=== PATIENT | female | born 1965 | race Caucasian/White ===

== ENCOUNTER 2024-06-10 17:11 | Emergency (ER) | payer OTHER, SELFPAY ==
--- NOTE | ~2024-06-10 | XR_ITS ---
EXAMINATION: XR CHEST CLINICAL INFORMATION: Shortness of breath and chest pressure COMPARISON: None available. TECHNIQUE: 2 views of the chest were obtained. FINDINGS: On the lateral radiograph only, there is some patchy density seen posteriorly. A definite correlate on the AP film is not seen but I suspect this could be in the extreme medial posterior basal segment of the left lower lobe. The heart and pulmonary vessels appear normal. No pleural effusions. No other abnormalities. XR/XR chest 2V IMPRESSION: Question of left lower lobe infiltrate. Electronically signed by: Harinder Franklin MD 06/10/2024 06:49 PM EDT
[2024-06-10 17:14] VITALS: BP 136/61; PULSE 130; RESP 18; TEMP 37.6; O2SAT 98; BMI 36.3
--- NOTE | 2024-06-10 17:18 | ECG_ITS ---
Test Reason : CHEST PRESSURE Blood Pressure : / mmHG Vent. Rate : 118 BPM Atrial Rate : 118 BPM P-R Int : 154 ms QRS Dur : 078 ms QT Int : 314 ms P-R-T Axes : 067 040 059 degrees QTc Int : 440 ms Sinus tachycardia Otherwise normal ECG When compared with ECG of 14-FEB-2010 15:19, No significant change was found Referred By: Aliya Cramer Electronically Signed By:Laureano Andujar
[2024-06-10 17:49] LABS: Basophils Percent Auto 0.2 % (0-2); Eosinophils Percent Auto 0.1 % (0-4); Hematocrit 40.4 % (37.0-47.0); Imm Gran Abs Auto 0.07 X10*3/uL (0.00-0.03); Imm Gran Pct Auto 0.5 % (0.0-0.4); Lymphocytes Absolute Auto 1.1 X10*3/uL (1.2-4.9); Lymphocytes Percent Auto 7.4 % (20-40); MANUAL DIFF FLAG SCAN; Mean Corpuscular HGB Conc 34.7 g/dl (31.0-35.0); Mean Corpuscular Volume 86.5 fL (80.0-98.0); Mean Platelet Volume 9.2 fL (9.4-12.3); Monocytes Absolute Auto 1.6 X10*3/uL (0.1-1.2); Monocytes Percent Auto 10.7 % (2-11); Neutrophils Absolute Auto 11.8 x10*3/uL (2.0-8.3); Neutrophils Percent Auto 81.1 % (45-73); Platelet Count 252 X10*3/uL (160-400); Red Blood Count 4.67 X10*6/uL (4.20-5.50); Red Cell Distribution Width 13.2 % (11.0-16.0); SCAN SMEAR FLAG 1; White Blood Count 14.5 X10*3/uL (4.8-10.8)
[2024-06-10 17:55] VITALS: PULSE 125; RESP 31; O2SAT 95
[2024-06-10 17:59] LABS: Alanine Aminotransferase 20 U/L (0-31); Alkaline Phosphatase 77 U/L (39-117); Anion Gap 12 (12-20); Aspartate Amino Transferase 21 U/L (5-31); Bilirubin Total 0.9 mg/dL (0.0-1.0); Blood Urea Nitrogen 13 mg/dL (9-16); Calcium 8.7 mg/dL (8.4-10.2); Carbon Dioxide 26 mmol/L (22-29); Chloride 106 mmol/L (96-108); Creatinine Clr Calc Pharmacy 104.1; Estimated Glomerular Filt Rate > 60; Glucose Random 70 mg/dL (60-115); Lipase 16 U/L (8-78); Magnesium 1.9 mg/dL (1.6-2.6); Potassium 4.1 mmol/L (3.3-5.1); Sodium 140 mmol/L (135-145); Total Protein 6.6 g/dL (6.5-8.0)
[2024-06-10] MEDS: levalbuterol HCL 1.25 MG/3 ML VIAL.NEB 3.75 MG INHALE (18:02)
[2024-06-10 18:07] LABS: Troponin-I High Sensitivity < 2.7 ng/L (<3.5-17.0)
[2024-06-10 18:10] LABS: SLIDE REVIEW VERIFIED
[2024-06-10] MEDS: predniSONE 20 MG TABLET 40 MG PO (18:32)
[2024-06-10 18:51] LABS: Influenza A PCR NEGATIVE (Negative); Influenza B PCR NEGATIVE (Negative); Resp Syncy Virus RNA Qual PCR NEGATIVE (Negative); SARS COV2 PCR INHOUSE NEGATIVE (Negative)
[2024-06-10 18:52] VITALS: PULSE 125; RESP 31; O2SAT 95
[2024-06-10] MEDS: Albuterol Sulfate 7.5 MG, Albuterol Sulfate (0.083%) 2.5 MG 10 MG INHALE (18:57)
--- NOTE | 2024-06-10 19:17 | PC.NURSE ---
this rn assumed care of pt, pt a&ox4, respirations even and unlabored. pt getting breathing treatment by RT at this time, no acute distress noted.
[2024-06-10 20:22] VITALS: O2SAT 97
--- NOTE | 2024-06-10 21:19 | ED.SOB ---
HPI - SOB/Dyspnea General Chief Complaint: Dyspnea Stated Complaint: asthma,sob, lightheaded, chest pressure Time Seen by Provider: 06/10/24 18:02 Source: patient Limitations: no limitations History of Present Illness ED Provider: Vannesa Rogers PA-C HPI Narrative: 58-year-old female with a history of asthma presents with asthma exacerbation. Patient denies that she has had recent cough and cold symptoms no fevers. No sick contacts with same symptoms. Patient states she was raking leaves yesterday, today she became profoundly wheezy. Related Data Previous Rx's ?Medication ?Instructions ?Recorded albuterol sulfate 2.5 mg/3 mL 2.5 mg (3 mL) inhalation Q4-6H PRN 06/10/24 (0.083 %) solution for nebulization shortness of breath or wheezing #75 mL cefpodoxime 200 mg tablet 200 mg PO BID #20 tabs 06/10/24 doxycycline monohydrate 100 mg 100 mg PO BID #20 caps 06/10/24 capsule prednisone 20 mg tablet 40 mg (2 x 20 mg) PO DAILY #8 tabs 06/10/24 Allergies Allergy/AdvReac Type Severity Reaction Status Date / Time acetaminophen [From Vicodin] Allergy Unknown HEADACHES,V Verified 06/10/24 17:19 OMITING penicillin G [Penicillin G] Allergy Unknown HIVES,ITCH Verified 06/10/24 17:19 From Vicodin Allergy Unknown HEADACHES,V Uncoded 06/10/24 17:19 OMITING Review of Systems Review of Systems: Yes all other systems are reviewed and are negative Constitutional: Constitutional: Denies fatigue and Denies fever(s) Cardiovascular: Cardiovascular: Denies chest pain and Reports dyspnea Respiratory: Respiratory: Denies cough, Reports dyspnea and Reports wheezing Endocrine: Endocrine: Denies fatigue Allergic/Immunologic: Allergic/Immunologic: Reports wheezing PMFSH Past Medical History Attestation statement: The following information was validated with the patient. Social History Social History Use of substances other than those prescribed or required for medical reasons: No Advance Directives: No Advance Directives Information Provided: No Do you have a plan to hurt others: No Plan Patient : No Physical Exam Vital Signs: Vital Signs: Last Vital Signs Temp 98.9 F 06/10/24 21:57 Pulse 121 H 06/10/24 21:57 Resp 15 06/10/24 21:57 BP 104/48 L 06/10/24 21:57 Pulse Ox 97 06/10/24 20:22 O2 Del Method Room Air 06/10/24 21:57 BMI result Body Mass Index 36.3 Const: Other: Alert, well in appearance Orientation/consciousness: patient oriented x3 Resp: Other: Mildly tachypneic, faint expiratory wheezes posterior chen, speaking in full sentence Cardio: Other: Normal peripheral perfusion Skin: Other: Warm dry no rash Neuro: General: patient oriented x3, no focal motor deficits and CN's II-XI intact bilaterally Psych: Other: Calm cooperative Course Reevaluation(s) Reevaluation #1: Ambulated the patient, her oxygen was maintained 95-97% on room air Medications Administered Discontinued Medications Generic Name Dose Route Start Last Admin Trade Name Freq PRN Reason Stop Dose Admin Albuterol Sulfate 7.5 mg/ 10 mg 06/10/24 18:52 06/10/24 18:57 Albuterol Sulfate 2.5 mg INHALE 06/10/24 18:53 10 mg ONCE ONE Administration Cefuroxime Axetil 500 mg 06/10/24 22:26 06/10/24 22:51 Cefuroxime Axetil 500 Mg Tablet PO 06/10/24 22:27 500 mg ONCE ONE Administration Doxycycline Monohydrate 100 mg 06/10/24 22:25 06/10/24 22:51 Doxycycline Monohydrate 100 Mg Capsule PO 06/10/24 22:26 100 mg ONCE ONE Administration Levalbuterol HCl 3.75 mg 06/10/24 17:54 06/10/24 18:02 Levalbuterol Hcl 1.25 Mg/3 Ml Vial.Neb INHALE 06/10/24 17:55 3.75 mg ONCE ONE Administration Prednisone 40 mg 06/10/24 18:12 06/10/24 18:32 Prednisone 20 Mg Tablet PO 06/10/24 18:13 40 mg ONCE ONE Administration Medical Decision Making Medical Decision Making MDM Narrative: 58-year-old female with a history of asthma presents with asthma exacerbation. Patient denies that she has had recent cough and cold symptoms no fevers. No sick contacts with same symptoms. Patient states she was raking leaves yesterday, today she became profoundly wheezy. Problem: Asthma History: Per patient I have considered the following differential diagnoses: Pneumonia, bronchitis, asthma exacerbation Plan: Patient here with likely allergen induced asthma exacerbation, we will give albuterol and steroid. Screening labs including viral panel and chest x-ray were obtained from triage I have independently reviewed the following tests: Labs: Look leukocytosis noted, not anemic, no electrolyte abnormality, viral panel negative Chest x-ray: XR/XR chest 2V IMPRESSION: Question of left lower lobe infiltrate. Electronically signed by: Harinder Franklin MD 06/10/2024 06:49 PM EDT RP Surprising finding, she has early PNA....she smokes, has not been hospitalized recently... We will place on doxy and cefpodoxime. Lab Data 06/10/24 17:39 06/10/24 17:39 Labs: Lab Results 06/10/24 Range/Units 17:39 WBC 14.5 H (4.8-10.8) X10*3/uL RBC 4.67 (4.20-5.50) X10*6/uL Hgb 14.0 (12.0-16.0) g/dl Hct 40.4 (37.0-47.0) % MCV 86.5 (80.0-98.0) fL MCH 30.0 (27.0-33.0) pg MCHC 34.7 (31.0-35.0) g/dl RDW 13.2 (11.0-16.0) % Plt Count 252 (160-400) X10*3/uL MPV 9.2 L (9.4-12.3) fL Immature Gran % (Auto) 0.5 H (0.0-0.4) % Neut % (Auto) 81.1 H (45-73) % Lymph % (Auto) 7.4 L (20-40) % [place] % (Auto) 10.7 (2-11) % Eos % (Auto) 0.1 (0-4) % Baso % (Auto) 0.2 (0-2) % Lymph # (Auto) 1.1 L (1.2-4.9) X10*3/uL [place] # (Auto) 1.6 H (0.1-1.2) X10*3/uL Eos # (Auto) 0.0 (0.0-0.4) X10*3/uL Baso # (Auto) 0.0 (0.0-0.2) X10*3/uL Abs Immat Gran (auto) 0.07 H (0.00-0.03) X10*3/uL Absolute Neuts (auto) 11.8 H (2.0-8.3) x10*3/uL Absolute Nucleated RBC 0.000 (0.0-0.012) X10*3/uL Nucleated RBC % (auto) 0.0 (0.0-0.2) /100WBC Smear Tech's Comments VERIFIED Sodium 140 (135-145) mmol/L Potassium 4.1 (3.3-5.1) mmol/L Chloride 106 (96-108) mmol/L Carbon Dioxide 26 (22-29) mmol/L Anion Gap 12 (12-20) BUN 13 (9-16) mg/dL Creatinine 0.71 (0.5-1.4) mg/dL Estim Creat Clear Calc 104.1 Estimated GFR > 60 Random Glucose 70 (60-115) mg/dL Calcium 8.7 (8.4-10.2) mg/dL Magnesium 1.9 (1.6-2.6) mg/dL Total Bilirubin 0.9 (0.0-1.0) mg/dL AST 21 (5-31) U/L ALT 20 (0-31) U/L Alkaline Phosphatase 77 (39-117) U/L Troponin I High Sens < 2.7 (<3.5-17.0) ng/L Total Protein 6.6 (6.5-8.0) g/dL Albumin 4.0 (3.5-5.0) g/dL Lipase 16 (8-78) U/L Influenza Type A (PCR) NEGATIVE (Negative) Influenza Type B (PCR) NEGATIVE (Negative) RSV RNA Qual (PCR) NEGATIVE (Negative) SARS-CoV-2 RNA (RT-PCR) NEGATIVE (Negative) Discharge Plan Discharge Clinical Impression: Asthma with exacerbation, Community acquired pneumonia Patient Disposition: Home, Self-Care Instructions: Asthma (ED), Community Acquired Pneumonia (ED) Additional Instructions: You are being treated for an asthma exacerbation, you were found to have an early pneumonia on chest x-ray. Take both antibiotics as directed. Use your steroid as directed. Use your home nebulizing treatment as directed. Follow up with your primary care provider in 3-5 days for a follow up appointment. Prescriptions: New cefpodoxime 200 mg tablet 200 mg PO BID Qty: 20 0RF Rx Instructions: must administer with a meal/food doxycycline monohydrate 100 mg capsule 100 mg PO BID Qty: 20 0RF prednisone 20 mg tablet 40 mg PO DAILY Qty: 8 0RF albuterol sulfate 2.5 mg /3 mL (0.083 %) solution for nebulization 2.5 mg inhalation Q4-6H PRN (Reason: shortness of breath or wheezing) Qty: 75 0RF Print Language: Khmer
--- NOTE | 2024-06-10 21:49 | PC.NURSE ---
ambulation trial completed, pt ambulated with steady gait, pt noted to be tachy 120-135bpm. brenda fletcher aware.
[2024-06-10 21:57] VITALS: BP 104/48; PULSE 121; RESP 15; TEMP 37.2
[2024-06-10] MEDS: cefuroxime axetiL 500 MG TABLET PO (22:51)
[2024-06-10] MEDS: Doxycycline Monohydrate 100 MG CAPSULE PO (22:51)
[2024-06-10 22:56] VITALS: BP 104/48; PULSE 121; RESP 15; TEMP 37.2
== END 2024-06-10 22:59 | disposition home or self-care (01) ==
PROVIDERS: Physician Assistant Medical; Emergency Provider Emergency Medicine; PCP Internal Medicine
DX: J45.901 Unspecified asthma with (acute) exacerbation (principal); J18.8 Other pneumonia, unspecified organism; R00.0 Tachycardia, unspecified; Z03.818 Encounter for observation for suspected exposure to other biological agents ruled out
CPT/HCPCS: 0241U; 71046; 80053; 83690; 83735; 84484; 85025; 93005; 94640; 99284; 99285

== ENCOUNTER → 2024-06-10 17:18 | Outpatient (BNV) | payer OTHER, SELFPAY | PROVIDERS: Emergency Provider Emergency Medicine; PCP Internal Medicine; Visit Provider Internal Medicine Cardiovascular Disease | DX: R07.89 Other chest pain (principal) | CPT/HCPCS: 93010 ==